=== PATIENT | female | born 1945 | race Caucasian/White ===

== ENCOUNTER → 2020-08-23 | Day surgery (SDC) | payer MEDICARE, OTHER ==
[~2020-08-23] MED LIST: ASPIRIN EC81 MG PO; CALCET TABLET1 EACH PO; FENTANYL CITRATE/PF 100MCG/2 ML INJ ONE; FISH OIL 1,0001 EAC2 PO; GLUCOSAMINE &1 EAC1 PO; LOSARTAN-HCTZ1 EACH PO; MIDAZOLAM HCL 2 MG/2 ML VIAL ONE; MULTIVITAMINS1 EAC7 PO; OR PHACO EYE KIT ONE; PRAVACHOL40 MG PO; PREOP PHACO EYE KIT ONE; PROBIOTIC PO; PROLIA60 MG/1 ML INJ
[2020-08-23 14:15] VITALS: BP 115/65
== END | disposition home or self-care (01) ==
LOC: OR 10:48
PROVIDERS: ATTEND Ophthalmology
DX: H25.12 Age-related nuclear cataract, left eye (principal); I10 Essential (primary) hypertension; E78.5 Hyperlipidemia, unspecified; F41.9 Anxiety disorder, unspecified; Z01.812 Encounter for preprocedural laboratory examination; Z11.59 Encounter for screening for other viral diseases; Z79.82 Long term (current) use of aspirin; Z87.891 Personal history of nicotine dependence
CPT/HCPCS: 66984; J2250; J3010; U0002; V2632

== ENCOUNTER → 2020-09-06 | Day surgery (SDC) | payer MEDICARE, OTHER ==
[2020-09-06 15:00] VITALS: BP 121/62
== END | disposition home or self-care (01) ==
LOC: OR 11:31
PROVIDERS: ATTEND Ophthalmology
DX: H25.11 Age-related nuclear cataract, right eye (principal); I10 Essential (primary) hypertension; E78.5 Hyperlipidemia, unspecified; M81.0 Age-related osteoporosis without current pathological fracture; Z88.6 Allergy status to analgesic agent; Z01.812 Encounter for preprocedural laboratory examination; Z11.59 Encounter for screening for other viral diseases; Z79.82 Long term (current) use of aspirin
CPT/HCPCS: 66984; U0002; J2250; J3010; V2632